=== PATIENT | female | born 1995 | race Hispanic/Latino ===

== ENCOUNTER 2018-08-27 11:29 | Emergency (ER) | payer SELFPAY | END 2018-08-27 12:50 | disposition left against medical advice (07) | LOC: NAV ERS 11:29 | DX: Z53.21 Procedure and treatment not carried out due to patient leaving prior to being seen by health care provider (principal) ==

== ENCOUNTER 2018-08-28 08:38 | Emergency (ER) | payer OTHER, SELFPAY ==
[2018-08-28 10:25] LABS: Bilirubin Negative (Negative); Blood, Urine Negative (Negative); Clarity Clear (Clear); Glucose, Urine (Dipstick) Negative (Negative); Leukocyte Trace (Negative); Nitrite Negative (Negative); Protein, Urine (Dipstick) Negative (Neg-Trace); Urobilinogen 0.2 mg/dL (0.2-1.0)
[2018-08-28 10:31] LABS: Bacteria/HPF 1+ HPF (None Seen); RBC/HPF None Seen HPF (0-3); WBC/HPF 0-3 HPF (0-3)
== END 2018-08-28 11:10 | disposition home or self-care (01) ==
LOC: NAV ERS 08:38
DX: O99.89 Other specified diseases and conditions complicating pregnancy, childbirth and the puerperium (principal); R10.9 Unspecified abdominal pain
CPT/HCPCS: 81003; 81015; 84702; 96360

== ENCOUNTER 2018-11-25 08:41 | Outpatient (CLI) | payer OTHER ==
--- NOTE | 2018-11-25 09:42 | ULT ---
COMPLETE OB ULTRASOUND GREATER THAN 14 WEEKS: HISTORY: Size and dates, anatomy. FINDINGS: A single viable intrauterine fetus is noted in cephalic presentation. The placenta is posterior. Th e amniotic fluid is within normal limits. heart rate is 130 b.p.m. Lower uterine segment and cervical length were not adequately evaluated. ANATOMY: head, 4-chamber heart, 3-vessel cord, stomach, bladder, kidneys, spine, and extremity regions a re unremarkable. BIOMETRY: BPD 5.9 cm-24 weeks 0 days Head circumference 22 cm-24 weeks 0 days Abdominal circumference 18.5 cm-22 weeks 2 days Femur length 4.3 cm-24 weeks 0 days IMPRESSION: 1. Single viable intrauterine fetus at 23 weeks 4 days with an estimated date of delivery of 9. 2. Estimated weight 616 gm with 13.2 percentile. POS: OFF
== END 2018-11-25 08:42 | disposition home or self-care (01) ==
LOC: NAV ULT 08:41
PROVIDERS: ATTEND Family Medicine
DX: Z34.82 Encounter for supervision of other normal pregnancy, second trimester (principal); Z3A.23 23 weeks gestation of pregnancy
CPT/HCPCS: 76805

== ENCOUNTER 2020-05-27 16:10 | Emergency (ER) | payer OTHER, SELFPAY ==
[2020-05-27] MEDS ORDERED: Dexamethasone 4 mg/ml Vial ONE (16:50)
[2020-05-27] MEDS ORDERED: Ibuprofen 200 MG TAB ONE (16:50)
== END 2020-05-27 17:30 | disposition home or self-care (01) ==
LOC: NAV ERS 16:10
DX: J02.9 Acute pharyngitis, unspecified (principal)
CPT/HCPCS: 87081; 87430; 96372; 99283; J1100

== ENCOUNTER 2021-11-04 10:39 | Emergency (ER) | payer SELFPAY ==
[2021-11-04] MEDS ORDERED: methylPREDNISolone Acetate 40 mg/ml Vial ONE (11:03)
== END 2021-11-04 11:20 | disposition home or self-care (01) ==
LOC: NAV ERS 10:39
DX: J02.9 Acute pharyngitis, unspecified (principal); J06.9 Acute upper respiratory infection, unspecified; Z20.822 Contact with and (suspected) exposure to COVID-19
CPT/HCPCS: 87081; 87430; 87804; 96372; 99283; J2920; U0003; U0005

== ENCOUNTER 2023-01-10 18:27 | Emergency (ER) | payer SELFPAY ==
[2023-01-10] MEDS ORDERED: predniSONE 20 MG TAB ONE (20:13)
== END 2023-01-10 20:17 | disposition home or self-care (01) ==
LOC: NAV ERS 18:27
DX: T78.40XA Allergy, unspecified, initial encounter (principal)
CPT/HCPCS: 99283; J7512

== ENCOUNTER 2023-04-10 17:13 | Emergency (ER) | payer SELFPAY ==
[2023-04-10] MEDS ORDERED: Sulfameth/Trimethoprim DS 800-160mg TAB ONE (18:42)
== END 2023-04-10 18:50 | disposition home or self-care (01) ==
LOC: NAV ERS 17:13
DX: N61.0 Mastitis without abscess (principal)
CPT/HCPCS: 99283